=== PATIENT | female | born 1990 | race Caucasian/White ===

== ENCOUNTER 2016-07-14 12:27 | Outpatient (CLI) | payer MEDICAID ==
[~2016-07-14] VITALS: Ht 157.5 cm; Wt 90.4 kg
[~2016-07-14 12:27] MED LIST: ACET325T33 PO; IBUP-1542 PO; PREN1TAB31 PO
[2016-07-14 12:40] VITALS: Ht 157.5 cm; Wt 90.4 kg
[2016-07-14 12:41] VITALS: BP 131/77; PULSE 86; RESP 18
--- NOTE | 2016-07-14 14:13 | RADRPT ---
PROCEDURE: US OB biophysical profile. CLINICAL INDICATION: decreased movements, labor TECHNIQUE: Multiple sonographic images of the pelvis were obtained. The images were reviewed on a PACS workstation. COMPARISON: No prior studies are available for comparison. FINDINGS: There is a single viable intrauterine gestation. Cardiac activity is present with 131 beats per min [place]. There is a vertex presentation. The placenta is anterior. There is no evidence of placental abruption. There is a normal amount of amniotic fluid with an BEL = 12.4 cm. Biophysical profile: movement 2/2 tone 2/2. breathing 2/2 BEL 2/2 Total 11/01 RPTAT: AA . IMPRESSION: Normal biophysical profile. . .Neel Perez MD, MD Date Time Electronically viewed and signed by .Neel Perez MD, MD on 07/14/2016 14:12 .S/
--- NOTE | 2016-07-14 15:42 | CONS ---
Date/Time of Note Date/Time of Note DATE: 07/14/16 TIME: 15:37 Consultation Date/Type/Reason Admit Date/Time July 14, 2016 OB triage consult Reason for Consultation This patient is a 25 years old 5 para 3 living 3 1 who is estimated date of confinement was August 05, 2016 which makes her 36 weeks and 6 days today She came to OB triage complaining of contractions slight shortness of breath since this morning On examination she is a fairly heavy set lady near term does not seem to be in any acute distress her vital signs were stable blood pressure 111/65 pulse rate 83 respiration 18 temperature 97.8 and saturation rate was 100 % tracing of heart rate on the monitor is normal reactive with good variability and occasional acceleration with no deceleration on pelvic examination cervix is about 1 cm 30% effaced and -3 station with intact membranes Hx of Present Illness On ultrasound study her biophysical profile was 8 8 BEL was 12 4 cm single fetus in vertex presentation Constitutional: chills, diaphoresis, disoriented, febrile, improved, no complaints, other, poor po, requiring IVF, requiring O2 Eyes: No discharge, No no complaints, No other, No pain, No redness, No visual change ENT: No bleeding, No congestion, No discharge, No dysphagia, No no complaints, No other, No pain, No sore throat Respiratory: other (Oxygen saturation was 100%), No cough, No no complaints, No pain, No pleuritic pain, No shortness of breath, No sputum, No wheezing Cardiovascular: No chest pain, No edema, No lightheadedness, No no complaints, No orthopenea, No other, No palpitations, No paroxysmal nocturnal dyspnea Gastrointestinal: No blood, No constipation, No decreased appetite, No diarrhea , No flatus, No nausea, No no complaints, No other, No pain, No passing stool, No vomiting Genitourinary: other (As I mentioned on pelvic examination cervix was 1 cm 30% effaced and head with is -3 station), No bleeding, No discharge, No dysuria, No flank pain, No hematuria, No no complaints Musculoskeletal: No back pain, No bone/joint pain, No neck pain, No no complaints, No other, No restricted range of motion, No swelling Skin: No bruising, No erythema, No laceration, No no complaints, No other, No pruritis, No rash, No skin lesions Neurologic: No confusion, No dizziness, No focal-weakness, No headache, No no complaints, No other, No seizure, No syncope Endocrine: No dry skin, No no complaints, No other, No polydypsia, No polyuria , No temp intolerance Social History Smoking Status: Never smoker Exam/Review of Systems Vital Signs Vitals Vital Signs Date Time Temp Pulse Resp B/P Pulse Ox O2 Delivery O2 Flow Rate FiO2 07/14/16 12:41 98.5 86 18 131/77 ANITA MAE MD Jul 14, 2016 15:42
== END 2016-07-14 15:06 | disposition home or self-care (01) ==
LOC: OBT 12:27 → L-D 12:29 → OBT 15:06
PROVIDERS: ATTEND Obstetrics & Gynecology
DX: O36.8130 Decreased fetal movements, third trimester, not applicable or unspecified (principal); Z3A.36 36 weeks gestation of pregnancy; O60.03 Preterm labor without delivery, third trimester
CPT/HCPCS: 76818; Z7500; G0463

== ENCOUNTER 2016-07-19 19:03 | Outpatient (CLI) | payer MEDICAID ==
[~2016-07-19] VITALS: Ht 157.5 cm; Wt 91.5 kg
[~2016-07-19 19:03] MED LIST changes: +FERR27TA PO; +PREN1TAB49 PO
[2016-07-19 20:46] VITALS: Ht 157.5 cm; Wt 91.5 kg
[2016-07-19 20:47] VITALS: BP 122/82; PULSE 81; RESP 17
[2016-07-19] MEDS ORDERED: PRENAT PO (20:52)
--- NOTE | 2016-07-19 21:26 | RADRPT ---
PROCEDURE: US OB biophysical profile. CLINICAL INDICATION: decreased movements TECHNIQUE: Multiple sonographic images of the pelvis were obtained. The images were reviewed on a PACS workstation. COMPARISON: 07/14 FINDINGS: There is a single viable intrauterine gestation. Cardiac activity is present with 122 beats per min [place]. There is a transverse maternal right presentation. The placenta is anterior. There is no evidence of placental abruption. There is a normal amount of amniotic fluid with an BEL = 14 cm. Biophysical profile: movement 2/2 tone 2/2. breathing 2/2 BEL 2/2 Total 11/01 RPTAT: AA . IMPRESSION: Normal biophysical profile. . .Neel Perez MD, MD Date Time Electronically viewed and signed by .Neel Perez MD, MD on 07/19/2016 21:26 .S/
--- NOTE | 2016-07-19 21:49 | QN ---
Documentation Comment OB TRIAGE 25 y/o at 37+ weeks with decreased movement. Oatient denies any contractions, leakage of fluid or vaginal bleeding. NST Category I BPP 11/01 While being monitored the patient feels the baby move. D/C home. Follow up antepartum testing on 07/21/2016. STANISLAV ALICIA MD Jul 19, 2016 21:49
--- NOTE | 2016-07-19 22:50 | TRIAGE ---
OB Triage Datetime Report Generated by CPN: 07/19/2016 22:50 Datetime: 07/19/2016 20:55 Stage of : OB Triage Labor Evaluation Frequency: X0 Monitor Mode: External Duration (sec)2399: 100 Quality: Mild Pattern: Normal: <= 5 Contractions in 10 Minutes Resting Tone [place]: Relaxed Heart Rate FHR Baseline Rate: 135 Monitor Mode: External US FHR Baseline Changes: No Baseline Change Variability: Moderate 6-25 bpm Accelerations: 15X15 Decelerations: None Category: Category I Datetime: 07/19/2016 20:10 Stage of : OB Triage Labor Evaluation Frequency: X0 Monitor Mode: External Duration (sec)2399: 110 Quality: Mild Pattern: Normal: <= 5 Contractions in 10 Minutes Resting Tone [place]: Relaxed Contraction Comments: ABDOMEN SOFT ON PALPATION Heart Rate FHR Baseline Rate: 135 Monitor Mode: External US Variability: Moderate 6-25 bpm Accelerations: 15X15 Decelerations: None Category: Category I Comments: PT REPORTED MOVEMENT Datetime: 07/19/2016 19:35 Stage of : OB Triage Assessment Type: Admission Assessment Maternal Assessment Level of Consciousness: Fully Conscious DTR's/Clonus: DTRs 2+; No Clonus Headache: Denies Blurred Vision: No Respiratory Effort: Unlabored Nausea/Vomiting: Denies RUQ Epigastric Pain: Denies Lower Extremities Edema: None Degree: None Upper Extremities Edema: None Degree: None Facial Edema: None Temperature Route: Oral Fall Risk Assessment History of Falling: (0) No Secondary Diagnosis: (0) No Ambulatory Aid: (0) Bedrest/Nurse Assist IV Therapy: (0) No Gait: (0) Normal/Bedrest/Immobile Mental Status: (0) Oriented to Own Ability Fall Score: 0 Fall Risk Score Definition: No Risk: No action required Pain Assessment Pain Scale: 0 Pain Presence: None/Denies Pain Type: N/A Datetime: 07/19/2016 19:15 Time of Arrival: 07/19/2016 19:00 EGA: 37.4 Arrived By: Ambulatory Arrived From: [facility] Chief Complaint: C/O DECREASED MOVEMENT Movement: Present Contractions: Denies/Absent Rupture of Membranes: Denies Vaginal Bleeding: None Vaginal Discharge: Denies Abdominal Trauma: Not Applicable Patient Complaints: Other Time Provider Notified: 07/19/2016 20:40 Provider Notified: DR. ALICIA Initial Plan: EFM X2, BPP Datetime: 07/14/2016 14:53 Labor Evaluation Frequency: occ Monitor Mode: External Duration (sec)2399: 30 Quality: Mild Pattern: Normal: <= 5 Contractions in 10 Minutes Resting Tone [place]: Relaxed Heart Rate FHR Baseline Rate: 150 Monitor Mode: External US FHR Baseline Changes: No Baseline Change Variability: Moderate 6-25 bpm Accelerations: 15X15 Decelerations: None Category: Category I Datetime: 07/14/2016 14:15 Monitor Mode: External Resting Tone [place]: Relaxed Heart Rate FHR Baseline Rate: 145 Variability: Moderate 6-25 bpm Decelerations: None Category: Category I Pain Assessment Pain Scale: 0 Pain Presence: None/Denies Pain Type: N/A Pain Goal: 3 Pain Relief Measures: Comfort Measures Datetime: 07/14/2016 13:23 Respiratory Effort: Unlabored Breath Sounds, Left: Clear and Equal Breath Sounds, Right: Clear and Equal Labor Evaluation Frequency: none Pattern: Normal: <= 5 Contractions in 10 Minutes Heart Rate FHR Baseline Rate: 145 Monitor Mode: External US FHR Baseline Changes: No Baseline Change Variability: Moderate 6-25 bpm Accelerations: 15X15 Decelerations: None Category: Category I Datetime: 07/14/2016 13:10 Headache: Denies Blurred Vision: No RUQ Epigastric Pain: Denies Facial Edema: None Labor Evaluation Frequency: none Pattern: Normal: <= 5 Contractions in 10 Minutes Resting Tone [place]: Relaxed Heart Rate FHR Baseline Rate: 140 Monitor Mode: External US FHR Baseline Changes: No Baseline Change Variability: Moderate 6-25 bpm Accelerations: 15X15 Decelerations: None Category: Category I Membrane Status: Intact Datetime: 07/14/2016 12:58 Vaginal Exam Dilatation (cms): 1.0 Effacement (%): 30 Station: -3 Exam By: jeremi rnc Vaginal Bleeding: None Cervix, Consistency: Firm Cervix, Position: Posterior Presentation 'A': Cephalic Datetime: 07/14/2016 12:45 Stage of : OB Triage EGA: 36.6 Maternal Assessment Level of Consciousness: Fully Conscious DTR's/Clonus: DTRs 2+; No Clonus Headache: Denies Blurred Vision: No Respiratory Effort: Unlabored; Regular Rhythm; Equal Expansion Breath Sounds, Left: Clear and Equal Breath Sounds, Right: Clear and Equal Nausea/Vomiting: Denies RUQ Epigastric Pain: Denies Lower Extremities Edema: None Degree: None Upper Extremities Edema: None Degree: None Facial Edema: None Temperature Route: Axillary Fall Risk Assessment History of Falling: (0) No Secondary Diagnosis: (0) No Ambulatory Aid: (0) Bedrest/Nurse Assist IV Therapy: (0) No Gait: (0) Normal/Bedrest/Immobile Mental Status: (0) Oriented to Own Ability Fall Score: 0 Fall Risk Score Definition: No Risk: No action required Labor Evaluation Frequency: every 10 min per pt Monitor Mode: External Duration (sec)2399: 60 Quality: Mild Pattern: Normal: <= 5 Contractions in 10 Minutes Heart Rate FHR Baseline Rate: 140 Monitor Mode: External US Pain Assessment Pain Scale: 6 Pain Presence: Intermittent Pain Type: Cramping; Contraction Pain Location: Abdomen Pain Relief Measures: Comfort Measures Datetime: 07/14/2016 12:42 Time of Arrival: 07/14/2016 12:42 Arrived By: Wheelchair Arrived From: Home Chief Complaint: conytractions and shortness of breath Movement: Present Contractions: Occasional Time Contractions Began: 07/14/2016 10:00 Contractions: 10 Rupture of Membranes: Denies Vaginal Bleeding: None Vaginal Discharge: Denies Recent Sexual Intercouse: Denies Abdominal Trauma: Not Applicable Patient Complaints: Contractions Initial Plan: efm/ sve
--- NOTE | 2016-07-19 22:51 | TRIAGE ---
OB Triage Datetime Report Generated by CPN: 07/19/2016 22:51 Datetime: 07/19/2016 21:53 Stage of : OB Triage
== END 2016-07-19 21:53 | disposition home or self-care (01) ==
LOC: L-D 19:03 → OBT 19:03
PROVIDERS: ATTEND Obstetrics & Gynecology
DX: O36.8130 Decreased fetal movements, third trimester, not applicable or unspecified (principal); Z3A.37 37 weeks gestation of pregnancy
CPT/HCPCS: 76818; Z7500; G0463

== ENCOUNTER 2016-07-21 17:07 | Outpatient (CLI) | payer MEDICAID ==
[~2016-07-21] VITALS: Ht 157.5 cm; Wt 90.3 kg
[~2016-07-21 17:07] MED LIST changes: +PRENAT PO
[2016-07-21 17:27] VITALS: Ht 157.5 cm; Wt 90.3 kg
[2016-07-21 17:28] VITALS: BP 118/66; PULSE 81
--- NOTE | 2016-07-21 17:50 | RADRPT ---
PROCEDURE: OB ultrasound for biophysical profile CLINICAL INDICATION: Biophysical profile. TECHNIQUE: Multiple sonographic images of the pelvis were obtained. Transabdominal view of the gr avid uterus are available for review. The images were reviewed on a PACS workstation. COMPARISON: 07/19/2016 FINDINGS: breathing movement = 2/2 tone = 2/2 motion = 2/2 Quantitative amniotic fluid volume = 2/2 BEL = 9.7 cm Single live intrauterine with cardiac activity at 135 beats per minute. There is a anterior placenta without previa. IMPRESSION: 1. Single living intrauterine gestation in breech position. 2. Biophysical profile = 8/8. 3. BEL = 9.7 cm. RPTAT: [facility] Physician Luciana Date Time Electronically viewed and signed by Physician Luciana on 07/21/2016 17:49 /
--- NOTE | 2016-07-21 18:51 | CONS ---
Date/Time of Note Date/Time of Note DATE: 07/21/16 TIME: 18:41 Consultation Date/Type/Reason Admit Date/Time July 21, 2016 OB triage consult Reason for Consultation This patient is a 25 years old 5 para 3 1 with estimated date of confinement August 05, 2016 which makes her 37 weeks and 6 days. She has been complaining of low movement and came here for further evaluation and triage . On general examination she is a well-developed well-nourished lady near term. She is not in any kind of distress. Abdomen is soft occasional contraction. heart tone is normal. Her vital signs appears to be normal; blood pressure 118/66 pulse rate 81 respiration 18 temperature 98.6 Constitutional: No chills, No diaphoresis, No disoriented, No febrile, No improved, No no complaints, No other, No poor po, No requiring IVF, No requiring O2 Eyes: No discharge, No no complaints, No other, No pain, No redness, No visual change ENT: No bleeding, No congestion, No discharge, No dysphagia, No no complaints, No other, No pain, No sore throat Respiratory: No cough, No no complaints, No other, No pain, No pleuritic pain, No shortness of breath, No sputum, No wheezing Cardiovascular: No chest pain, No edema, No lightheadedness, No no complaints, No orthopenea, No other, No palpitations, No paroxysmal nocturnal dyspnea Gastrointestinal: No blood, No constipation, No decreased appetite, No diarrhea , No flatus, No nausea, No no complaints, No other, No pain, No passing stool, No vomiting Genitourinary: other (Breech presentation), No bleeding, No discharge, No dysuria, No flank pain, No hematuria, No no complaints Musculoskeletal: No back pain, No bone/joint pain, No neck pain, No no complaints, No other, No restricted range of motion, No swelling Skin: No bruising, No erythema, No laceration, No no complaints, No other, No pruritis, No rash, No skin lesions Neurologic: No confusion, No dizziness, No focal-weakness, No headache, No no complaints, No other, No seizure, No syncope Endocrine: No dry skin, No no complaints, No other, No polydypsia, No polyuria , No temp intolerance Additional Comments On the ultrasound report her biophysical profile was 8/8 , the BEL of 9.7 and a single live intrauterine . NST as I mentioned was reactive with good variability and acceleration ,no deceleration ,fetus is in breech presentation. With this findings patient was discharged home to be followed in the clinic Social History Smoking Status: Never smoker Exam/Review of Systems Vital Signs Vitals Vital Signs Date Time Temp Pulse Resp B/P Pulse Ox O2 Delivery O2 Flow Rate FiO2 07/21/16 17:28 98.6 81 118/66 ANITA MAE MD Jul 21, 2016 18:51
== END 2016-07-21 18:45 | disposition home or self-care (01) ==
LOC: OBT 17:07 → L-D 17:07 → OBT 18:45
PROVIDERS: ATTEND Obstetrics & Gynecology
DX: O36.8120 Decreased fetal movements, second trimester, not applicable or unspecified (principal); Z3A.26 26 weeks gestation of pregnancy
CPT/HCPCS: 76818; Z7500; G0463

== ENCOUNTER 2016-07-24 11:40 | Outpatient (CLI) | payer MEDICAID ==
[~2016-07-24] VITALS: Ht 157.5 cm; Wt 91.0 kg
[~2016-07-24 11:40] MED LIST changes: -ACET325T33 PO; -FERR27TA PO; -IBUP-1542 PO; -PREN1TAB49 PO
[2016-07-24 11:46] VITALS: Ht 157.5 cm; Wt 91.0 kg
[2016-07-24 11:47] VITALS: BP 124/78; PULSE 82; RESP 20
--- NOTE | 2016-07-24 12:45 | RADRPT ---
PROCEDURE: OB ultrasound for biophysical profile CLINICAL INDICATION: Poor tone. TECHNIQUE: Multiple sonographic images of the pelvis were obtained. Transabdominal views of the g ravid uterus are available for review. The images were reviewed on a PACS workstation. COMPARISON: None FINDINGS: breathing movement = 2/2 tone = 2/2 motion = 2/2 BEL = 2/2 BEL = 8.7 cm Single live intrauterine with cardiac activity of 154 bpm. position is breech . The placenta is anterior. IMPRESSION: 1. Single live intrauterine gestation. 2. Biophysical profile = 8/8. 3. BEL = 8.7 cm. 4. Breech presentation RPTAT: HH .Geri Morel MD, Date Time Electronically viewed and signed by .Geri Morel MD, on 07/24/2016 12:45 .G/
--- NOTE | 2016-07-24 13:05 | TRIAGE ---
OB Triage Datetime Report Generated by CPN: 07/24/2016 13:05 Datetime: 07/24/2016 11:42 Time of Arrival: 07/24/2016 11:43 EGA: 38.2 Arrived By: Ambulatory Arrived From: Home Chief Complaint: HERE FOR F/U NST BPP Movement: Present Contractions: Irregular Rupture of Membranes: Denies Vaginal Bleeding: None Vaginal Discharge: Denies Recent Sexual Intercouse: Denies Abdominal Trauma: Not Applicable Patient Complaints: None Provider Notified: KAYODE Initial Plan: EFM,OB US CALL DR HEADLEY Maternal Assessment Level of Consciousness: Fully Conscious DTR's/Clonus: DTRs 2+; No Clonus Headache: Denies Blurred Vision: No Respiratory Effort: Unlabored; Regular Rhythm; Equal Expansion Breath Sounds, Left: Clear and Equal Breath Sounds, Right: Clear and Equal Nausea/Vomiting: Denies RUQ Epigastric Pain: Denies Facial Edema: None Temperature Route: Axillary Fall Risk Assessment History of Falling: (0) No Secondary Diagnosis: (0) No Ambulatory Aid: (0) Bedrest/Nurse Assist IV Therapy: (0) No Gait: (0) Normal/Bedrest/Immobile Mental Status: (0) Oriented to Own Ability Fall Score: 0 Fall Risk Score Definition: No Risk: No action required Datetime: 07/24/2016 11:41 Labor Evaluation Frequency: IRREG PER PT Monitor Mode: External Quality: Mild Pattern: Normal: <= 5 Contractions in 10 Minutes Resting Tone [place]: Relaxed Heart Rate FHR Baseline Rate: 160 Monitor Mode: External US FHR Baseline Changes: No Baseline Change Variability: Moderate 6-25 bpm Accelerations: 15X15 Decelerations: None Category: Category I Pain Assessment Pain Scale: 3 Pain Presence: Intermittent Pain Type: Cramping Pain Location: Abdomen Pain Goal: 0 Vaginal Exam Membrane Status: Intact Datetime: 07/21/2016 18:16 Stage of : OB Triage Datetime: 07/21/2016 18:10 Labor Evaluation Frequency: 0 Monitor Mode: External Resting Tone [place]: Relaxed Heart Rate FHR Baseline Rate: 135 Monitor Mode: External US Variability: Moderate 6-25 bpm Accelerations: 10X10 Decelerations: None Category: Category I Pain Assessment Pain Scale: 0 Pain Presence: None/Denies Pain Type: N/A Pain Goal: 3 Pain Relief Measures: Comfort Measures Datetime: 07/21/2016 17:31 Stage of : OB Triage Datetime: 07/21/2016 17:21 Stage of : OB Triage Assessment Type: Triage Maternal Assessment Level of Consciousness: Fully Conscious DTR's/Clonus: DTRs 2+; No Clonus Headache: Denies Blurred Vision: No Respiratory Effort: Unlabored; Regular Rhythm; Equal Expansion Breath Sounds, Left: Clear and Equal Breath Sounds, Right: Clear and Equal Nausea/Vomiting: Denies RUQ Epigastric Pain: Denies Facial Edema: None Temperature Route: Axillary Fall Risk Assessment History of Falling: (0) No Secondary Diagnosis: (0) No Ambulatory Aid: (0) Bedrest/Nurse Assist IV Therapy: (0) No Gait: (0) Normal/Bedrest/Immobile Mental Status: (0) Oriented to Own Ability Fall Score: 0 Fall Risk Score Definition: No Risk: No action required Labor Evaluation Frequency: 0 Monitor Mode: External Resting Tone [place]: Relaxed Heart Rate FHR Baseline Rate: 135 Monitor Mode: External US Variability: Moderate 6-25 bpm Decelerations: None Category: Category I Pain Assessment Pain Scale: 0 Pain Presence: None/Denies Pain Type: N/A Pain Goal: 3 Pain Relief Measures: Comfort Measures Datetime: 07/21/2016 17:20 Time of Arrival: 07/21/2016 17:05 EGA: 37.6 Arrived By: Ambulatory Arrived From: Home Chief Complaint: FOLLOW UP DFM, DENIES UC'S, BLEEDING OR LEAKING OF FLUID Movement: Decreased Contractions: Denies/Absent Rupture of Membranes: Denies Vaginal Bleeding: None Vaginal Discharge: Denies Recent Sexual Intercouse: Denies Abdominal Trauma: Not Applicable Time Provider Notified: 07/21/2016 17:31 Provider Notified: FOROOHAR Initial Plan: MONITOR, BPP/POSITION Datetime: 07/19/2016 20:55 Labor Evaluation Frequency: X1 Datetime: 07/19/2016 20:10 Labor Evaluation Frequency: X1 Datetime: 07/19/2016 19:35 Fall Score: 0 Fall Risk Score Definition: No Risk: No action required Datetime: 07/19/2016 19:15 EGA: 37.4 Datetime: 07/14/2016 12:45 EGA: 36.6 Fall Score: 0 Fall Risk Score Definition: No Risk: No action required
--- NOTE | 2016-07-24 13:40 | QN ---
Documentation Comment Laborist Dr Esqueda's pt 25 y.o. A1 with an IUP at 38w2d with a h/o T-lie presentation here for a f /u US to verify presentation. +Fm although pt states that it is less than before. No VB or leaking. PMHx: none. PSHx: none. POBHx: x 3. NKDA. BP 124/78 T= 98.3 BPP 8/8 with an BEL of 8.7 cm. BREECH. Anterior placenta. NST:baseline 130-140 bpm with accels to 170 bpm. No decels. No UC's. A: IUP at 38w 2d. BREECH. P: F/U with Dr Esqueda tomorrow in the clinic. A copy of the US report is being given to the pt. LOIDA IRWIN MD Jul 24, 2016 13:40
== END 2016-07-24 13:30 | disposition home or self-care (01) ==
LOC: OBT 11:40 → L-D 11:40 → OBT 13:30
PROVIDERS: ATTEND Obstetrics & Gynecology
DX: O32.1XX0 Maternal care for breech presentation, not applicable or unspecified (principal); Z3A.38 38 weeks gestation of pregnancy
CPT/HCPCS: 76818; Z7500; G0463

== ENCOUNTER 2018-04-16 23:44 | Emergency (ER) | payer SELFPAY ==
[~2018-04-16] VITALS: Ht 157.5 cm; Wt 87.5 kg
[2018-04-16 23:49] VITALS: BP 136/62; PULSE 77; RESP 18; Ht 157.5 cm; Wt 87.5 kg
== END 2018-04-17 03:03 | disposition left against medical advice (07) ==
LOC: FTE 23:44
DX: Z53.21 Procedure and treatment not carried out due to patient leaving prior to being seen by health care provider (principal)

== ENCOUNTER 2018-10-21 15:11 | Outpatient (CLI) | payer MEDICAID ==
--- NOTE | 2018-10-21 18:08 | PN ---
Triage Information Date/Time Reason for visit: Uterine contractions Weeks of Gestation 36+ /Para 6/2 Diabetes: none Hypertention: none Objective Contractions: None Disposition: Discharge Assessment/Plan CX clsoed No cervical pull over an hour BPP 10/10 Precautions discussed Questions answered Follow up with her provider LUIS LEWIS M.D. Oct 21, 2018 18:08
--- NOTE | 2018-10-21 18:14 | TRIAGE ---
OB Triage Datetime Report Generated by CPN: 10/21/2018 18:13 Datetime: 10/21/2018 16:56 Maternal Assessment Level of Consciousness: Keenly Alert, Responsive DTR's/Clonus: DTRs 2+ Headache: Denies Blurred Vision: No Nausea/Vomiting: Denies RUQ Epigastric Pain: Denies Facial Edema: None Labor Evaluation Frequency: x2 Monitor Mode: External Duration (sec)2399: 60 Quality: Mild Pattern: Normal: <= 5 Contractions in 10 Minutes Resting Tone [place]: Relaxed Heart Rate FHR Baseline Rate: 145 Monitor Mode: External US FHR Baseline Changes: No Baseline Change Variability: Moderate 6-25 bpm Accelerations: 15X15 Decelerations: None Category: Category I Pain Assessment Pain Scale: 2 Pain Presence: Intermittent Pain Type: Cramping Pain Location: Abdomen Pain Goal: 0 Membrane Status: Intact Datetime: 10/21/2018 15:30 Time of Arrival: 10/21/2018 15:02 EGA: 36.5 Arrived By: Ambulatory Arrived From: Home Chief Complaint: VAGINAL BURNING ORDERS FOR BPP Movement: Decreased Contractions: Denies/Absent Rupture of Membranes: Denies Vaginal Bleeding: None Vaginal Discharge: Denies Recent Sexual Intercouse: Denies Abdominal Trauma: Not Applicable Patient Complaints: Other Time Provider Notified: 10/21/2018 15:48 Provider Notified: DR LEWIS Initial Plan: EFM,ALL DR LEWIS Datetime: 10/21/2018 15:29 Maternal Assessment Level of Consciousness: Keenly Alert, Responsive DTR's/Clonus: DTRs 2+; No Clonus Headache: Denies Blurred Vision: No Respiratory Effort: Unlabored; Regular Rhythm; Equal Expansion Breath Sounds, Left: Clear and Equal Breath Sounds, Right: Clear and Equal Nausea/Vomiting: Denies RUQ Epigastric Pain: Denies Facial Edema: None Temperature Route: Axillary Fall Risk Assessment History of Falling: (0) No Secondary Diagnosis: (0) No Ambulatory Aid: (0) Bedrest/Nurse Assist IV Therapy: (0) No Gait: (0) Normal/Bedrest/Immobile Mental Status: (0) Oriented to Own Ability Fall Score: 0 Fall Risk Score Definition: No Risk: No action required Datetime: 10/21/2018 15:26 Maternal Assessment Level of Consciousness: Keenly Alert, Responsive DTR's/Clonus: DTRs 2+ Headache: Denies Blurred Vision: No Nausea/Vomiting: Denies RUQ Epigastric Pain: Denies Facial Edema: None Labor Evaluation Frequency: NONE AT THIS TIME Monitor Mode: External Pattern: Normal: <= 5 Contractions in 10 Minutes Resting Tone [place]: Relaxed Heart Rate FHR Baseline Rate: 140 Monitor Mode: External US FHR Baseline Changes: No Baseline Change Variability: Moderate 6-25 bpm Accelerations: 10X10 Decelerations: None Category: Category I Pain Assessment Pain Scale: 0 Pain Presence: None/Denies Pain Type: N/A Pain Location: Abdomen Pain Goal: 0 Vaginal Exam Dilatation (cms): 0.0 Effacement (%): 0 Exam By: JOSE ALBERTO RN Membrane Status: Intact Vaginal Bleeding: None Cervix, Consistency: Firm Cervix, Position: Posterior
== END 2018-10-21 18:18 | disposition home or self-care (01) ==
LOC: L-D 15:11 → OBT 15:11
PROVIDERS: ATTEND Obstetrics & Gynecology
DX: O47.03 False labor before 37 completed weeks of gestation, third trimester (principal); Z3A.36 36 weeks gestation of pregnancy
CPT/HCPCS: 76818; G0463